=== PATIENT | male | born 2000 ===

== ENCOUNTER 2021-03-13 04:58 | Emergency (ER) | payer SELFPAY ==
[~2021-03-13] VITALS: Ht 175.3 cm; Wt 65.8 kg
[2021-03-13 05:10] VITALS: BP 134/71
== END 2021-03-13 05:18 | disposition left against medical advice (07) ==
LOC: ER 04:58
DX: Z53.21 Procedure and treatment not carried out due to patient leaving prior to being seen by health care provider